=== PATIENT | female | born 1990 | race Two or more races ===

== ENCOUNTER 2020-05-13 12:30 | Inpatient (IN) | payer OTHER ==
[~2020-05-13] VITALS: Ht 165.1 cm; Wt 73.5 kg
[~2020-05-13 12:30] MED LIST: IMODIUM A-D2 MG PO; PEPCID40 MG PO; PHENERGAN25 MG PO; PRENATAL CAPSU1 EACH PO
== END 2020-05-23 12:09 | disposition home or self-care (01) | DRG 807 ==
LOC: OB/GYN 05-21 06:08 → LDR 05-21 06:08 → OB/GYN 05-21 13:15
PROVIDERS: ADMIT Obstetrics & Gynecology; ATTEND Obstetrics & Gynecology
PROC: 10E0XZZ Delivery of Products of Conception, External Approach (ICD-10-PCS; principal; 2020-05-21)
PROC: 0HQ9XZZ Repair Perineum Skin, External Approach (ICD-10-PCS; 2020-05-21)
PROC: 4A0HXFZ Measurement of Products of Conception, Cardiac Rhythm, External Approach (ICD-10-PCS; 2020-05-21)
DX: O70.0 First degree perineal laceration during delivery (principal); Z37.0 Single live birth; Z3A.38 38 weeks gestation of pregnancy